=== PATIENT | male | born 1975 | race Caucasian/White ===

== ENCOUNTER 2022-09-11 14:42 | Emergency (ER) | payer OTHER, BC ==
[2022-09-11] MEDS ORDERED: IBUPROFEN 200 MG TABLET PO ONE (14:47)
[2022-09-11] MEDS ORDERED: IBUPROFEN 400 MG TABLET (FP) PO ONE (14:56)
[2022-09-11 15:05] VITALS: BP 102/70; PULSE 56; RESP 16; TEMP 98.5; BMI 26.1
== END 2022-09-11 16:18 | disposition home or self-care (01) ==
LOC: FER 14:42
DX: S92.352A Displaced fracture of fifth metatarsal bone, left foot, initial encounter for closed fracture (principal); M79.672 Pain in left foot; M25.532 Pain in left wrist; W17.89XA Other fall from one level to another, initial encounter; W50.1XXA Accidental kick by another person, initial encounter; Y99.0 Civilian activity done for income or pay
CPT/HCPCS: 73110-TC-LT-FY; 73130-TC-LT-FY; 73610-TC-LT-FY; 73630-TC-LT; 99284-25